=== PATIENT | female | born 1955 | race Caucasian/White ===

== ENCOUNTER → 2018-04-29 | Day surgery (SDC) | payer OTHER ==
[~2018-04-29] VITALS: Ht 170.2 cm; Wt 71.7 kg
--- NOTE | 2018-04-29 10:10 | Operative Report ---
Operative/Inv Procedure Report Surgery Date: 04/29/18 Name of Procedure: Right shoulder arthroscopy, extensive debridement, subacromial decompression, subpectoral biceps tenodesis, manipulation under anesthesia Pre-Operative Diagnosis: Right shoulder partial thickness rotator cuff tear Post-Operative Diagnosis: Right shoulder partial thickness rotator cuff tear, SLAP tear, adhesive capsulitis Estimated Blood Loss: scant Surgeon/Envelope Sealing Machine Operator: Shanta PARADA,Siva Morley Anesthesia: laryngeal mask airway, block Complications: None Condition: Stable to PACU Operative Indication: This is a 62-year-old female with long-standing right shoulder pain. She has failed conservative care. MRI showed a high-grade partial-thickness rotator cuff tear. Risks and benefits of the procedure were discussed with the patient at length. Risks include but are not limited to nerve damage, muscle damage, infection, blood loss, blood clots, pulmonary embolus, and even . The patient agreed to the above risks and elected to proceed with surgery. Operative/Procedure Note Note: The patient was taken to the operating room and placed in the lateral decubitus position with the operative side up after anesthesia was induced. The upper extremity was prepped and draped in the normal sterile fashion. A timeout was performed prior to incision. The site marking was visualized prior to incision. IV antibiotics were given prior to incision. After the upper extremity was prepped and draped a spinal needle was used to insufflate the shoulder joint with saline. An 11 blade was used to incise the skin for the posterior portal placement. The cannula was then placed. The camera was inserted. There was difficulty getting into the joint due to severe tightness. At this point the shoulder was manipulated to regain full range of motion. Scar tissue was released during the manipulation. An anterior portal was established just proximal and lateral to the coracoid with a spinal needle and an 11 blade. The diagnostic arthroscopy was then performed which showed the above findings. A shaver was used to debride the undersurface of the anterior supraspinatus. The subscapularis insertion was also debrided. A wand was used to perform a tenotomy of the biceps tendon. The wand was then used to further stabilize the superior labrum. Next the subacromial space was entered through the posterior portal. A lateral portal was established with a spinal needle and an 11 blade. A blunt probe was inserted through the lateral portal. Next the shaver was inserted and a subacromial bursectomy was performed. Any bleeding vessels were identified and cauterized. The shaver was used to debride any bursal tissue on the undersurface of the acromion and surrounding the humeral head. The coracoacromial ligament was taken down with a wand. Care was taken to protect the rotator cuff tissue and only take bursal tissue. A wand was then used to further take down the soft tissue on the undersurface of the acromion. A bur was then inserted and the acromioplasty was then begun starting at the anterolateral edge of the acromion. This was extended down to the level of the acromioclavicular joint. This was then tapered further posteriorly. A 1/8 inch Hemovac drain was placed through the posterior portal. An incision was then made in the axillary fold. Blunt dissection was performed and the pectoralis major tendon was identified. A Hohmann retractor was inserted deep to this to expose the bicipital groove. The biceps tendon was then delivered from the wound and whipstitched starting at the musculotendinous junction. It extended proximally. The excess tendon was cut. The bicipital groove was then cleared off of any soft tissue. A guidewire was then drilled from an anterior to posterior direction in the groove. A 7 mm reamer was then used over the wire to drill the anterior cortex. A 7 x 10 mm Arthrex peek tenodesis screw was then inserted after the biceps tendon was delivered into the drill hole. The screw was then tightened down flush with the anterior humeral cortex. The sutures were then tied over the top. The excess suture was cut. The wound was copiously irrigated. The skin was closed with 2-0 vicryl suture in a simple interrupted fashion and a running subcuticular 4-0 Monocryl stitch. Dermabond was applied. All instruments were removed and the shoulder was copiously irrigated. The portal sites were closed with 3-0 nylon suture in a simple interrupted fashion. A dry sterile dressing was placed. A sling was applied. The patient was transferred to PACU in stable condition. Findings: Significant stiffness in the shoulder. Partial tearing of the anterior supraspinatus involving 10% of the footprint. Otherwise shaver space is intact. Mild fraying of the subscapularis insertion. Biceps tendon intact. Unstable SLAP tear present. Anterior labrum intact. Posterior labrum intact. Extensive subacromial bursitis. Rotator cuff intact from the bursal side. Subacromial hook present. Glenohumeral articular cartilage intact.
== END ==
LOC: STS 01:38
DX: M75.111 Incomplete rotator cuff tear or rupture of right shoulder, not specified as traumatic (principal); M75.01 Adhesive capsulitis of right shoulder; E03.9 Hypothyroidism, unspecified; M19.90 Unspecified osteoarthritis, unspecified site; Z79.82 Long term (current) use of aspirin; Z87.891 Personal history of nicotine dependence
CPT/HCPCS: C1713; J0171; J0690; J1885; J2250; J2405